=== PATIENT | female | born 1960 | race Caucasian/White ===

== ENCOUNTER 2016-07-03 10:55 | Emergency (ER) | payer OTHER ==
[~2016-07-03] VITALS: Ht 152.4 cm; Wt 105.4 kg
[~2016-07-03 10:55] MED LIST: ACIPHEX20 MG PO; ARTHRITIS PAIN650 M3 PO; ATIVAN1 MG PO; BENZTROPINE MESY1 MG PO; CALCIUM600 MG PO; EFFEXOR75 MG; FOLIC ACID1 MG PO; GEODON40 MG PO; IRON27 MG PO; IRON325 M1 PO; LEVOTHROID,S0.112 MG PO; LORAZEPAM1 MG PO; OMEPRAZOLE40 MG PO; PRILOSEC40 MG PO; PRINIVIL10 MG PO; RANITIDINE HCL300 M1 PO; SEROQUEL100 MG PO; SIMVASTATIN40 M1 PO; TRILAFON8 MG PO; TYLENOL650 MG PR; VENTOLIN HFA18 GM IH; ZESTRIL,PRINIVI10 MG PO; ZETIA10 MG PO; ZOCOR20 MG PO; ZOCOR40 MG PO; ZYRTEC10 MG PO
[2016-07-03 11:42] LABS: MCH 29.2 PG (29.0-34.0); MCHC 36.1 G/DL (30.0-36.0); PLATELET COUNT 303 K/uL (156-360); RBC DIS.WIDTH-CV 12.7 % (11.8-14.6); RED BLOOD COUNT 4.69 M/uL (3.80-5.20); WHITE BLOOD COUNT 9.3 K/uL (4.1-10.2)
[2016-07-03 11:50] LABS: CHLORIDE 102 mEq/L (99-109); POTASSIUM 4.1 mEq/L (3.7-5.4); SODIUM 133 mEq/L (136-147)
[2016-07-03 11:52] LABS: GLUCOSE 158 mg/dL (70-99)
[2016-07-03 11:54] LABS: ANION GAP 5 MEQ/L (2-14)
[2016-07-03 11:55] LABS: SERUM ETHYL ALCOHOL < 10 mg/dL
[2016-07-03 11:56] LABS: GFR ESTIMATE (CALCULATED) > 59 mL/min/
[2016-07-03 11:57] LABS: UREA NITROGEN (BUN) 8 mg/dL (9-23)
[2016-07-03 14:15] LABS: AMPHETAMINE NEGATIVE (500 ng/mL); BARBITURATES NEGATIVE (200 ng/mL); BENZODIAZEPINES NEGATIVE (150 ng/mL); COCAINE NEGATIVE (150 ng/mL); INTERNAL CONTROLS VALID? YES; METHADONE NEGATIVE (200 ng/mL); METHAMPHETAMINE NEGATIVE (500 ng/mL); OPIATES (MORPHINE) NEGATIVE (100 ng/mL); OXYCODONE NEGATIVE (100 ng/mL); PHENCYCLIDINE NEGATIVE (25 ng/mL); PROPOXYPHENE NEGATIVE (300 ng/mL); THC CANNABINOIDS NEGATIVE (50 ng/mL); TRICYCLIC ANTIDEPRESSANTS NEGATIVE (300 ng/mL)
[2016-07-03 16:28] VITALS: BP 140/67
[2016-07-04] MEDS ORDERED: LEVO-T112 MCG PO (17:02)
[2016-07-04] MEDS ORDERED: BENZTROPINE ME0.5 MG PO (17:03)
[2016-07-04] MEDS ORDERED: NORVASC10 MG PO (17:04)
[2016-07-04] MEDS ORDERED: TRILAFON4 MG PO (17:05)
[2016-07-04] MEDS ORDERED: FOLIC ACID0.4 MG PO (17:06)
[2016-07-04] MEDS ORDERED: WELLBUTRIN XL300 MG PO (17:06)
[2016-07-04] MEDS ORDERED: SYMBICORT60 INHALAT IH (17:07)
[2016-07-04] MEDS ORDERED: METOPROLOL SUC100 MG PO (17:10)
[2016-07-04] MEDS ORDERED: FLONASE16 G1 BOTH NARES (17:11)
[2016-07-04] MEDS ORDERED: CLOTRIM ANTIFUN15 GM TP (17:12)
[2016-07-04] MEDS ORDERED: VENTOLIN HFA18 GM IH (17:12)
== END 2016-07-03 16:28 | disposition home or self-care (01) ==
LOC: EME 10:55
DX: F20.9 Schizophrenia, unspecified (principal); J45.909 Unspecified asthma, uncomplicated; E11.9 Type 2 diabetes mellitus without complications; I10 Essential (primary) hypertension; K21.9 Gastro-esophageal reflux disease without esophagitis
CPT/HCPCS: 80048; 85027; 90839; 99281; 99284; G0480

== ENCOUNTER 2016-07-04 15:01 | Emergency (ER) | payer OTHER ==
[~2016-07-04] VITALS: Ht 152.4 cm; Wt 106.7 kg
[2016-07-04] MEDS ORDERED: LEVO-T112 MCG PO (17:02)
[2016-07-04] MEDS ORDERED: BENZTROPINE ME0.5 MG PO (17:03)
[2016-07-04] MEDS ORDERED: NORVASC10 MG PO (17:04)
[2016-07-04] MEDS ORDERED: TRILAFON4 MG PO (17:05)
[2016-07-04] MEDS ORDERED: FOLIC ACID0.4 MG PO (17:06)
[2016-07-04] MEDS ORDERED: WELLBUTRIN XL300 MG PO (17:06)
[2016-07-04] MEDS ORDERED: SYMBICORT60 INHALAT IH (17:07)
[2016-07-04] MEDS ORDERED: METOPROLOL SUC100 MG PO (17:10)
[2016-07-04] MEDS ORDERED: FLONASE16 G1 BOTH NARES (17:11)
[2016-07-04] MEDS ORDERED: CLOTRIM ANTIFUN15 GM TP (17:12)
[2016-07-04] MEDS ORDERED: VENTOLIN HFA18 GM IH (17:12)
[2016-07-04 18:37] VITALS: BP 120/76
== END 2016-07-04 18:38 ==
LOC: EME 15:01
DX: F25.1 Schizoaffective disorder, depressive type (principal); R44.0 Auditory hallucinations; I10 Essential (primary) hypertension; J45.909 Unspecified asthma, uncomplicated
CPT/HCPCS: 90837; 99281; 99285

== ENCOUNTER 2016-09-05 12:55 | Emergency (ER) | payer OTHER ==
[~2016-09-05] VITALS: Ht 157.5 cm; Wt 105.8 kg
[~2016-09-05 12:55] MED LIST changes: +BENZTROPINE ME0.5 MG PO; +CLOTRIM ANTIFUN15 GM TP; +FLONASE16 G1 BOTH NARES; +FOLIC ACID0.4 MG PO; +LEVO-T112 MCG PO; +METOPROLOL SUC100 MG PO; +NORVASC10 MG PO; +SYMBICORT60 INHALAT IH; +TRILAFON4 MG PO; +WELLBUTRIN XL300 MG PO
[2016-09-05 13:00] VITALS: BP 133/83
[2016-09-05] MEDS ORDERED: MOTRIN600 MG PO (15:13)
[2016-09-05] MEDS ORDERED: ULTRACET1 TABLET PO (15:13)
== END 2016-09-05 16:00 | disposition home or self-care (01) ==
LOC: EME 12:55 → RME 12:55
DX: M17.9 Osteoarthritis of knee, unspecified (principal); J45.909 Unspecified asthma, uncomplicated; F31.9 Bipolar disorder, unspecified; E11.9 Type 2 diabetes mellitus without complications; I10 Essential (primary) hypertension; K21.9 Gastro-esophageal reflux disease without esophagitis
CPT/HCPCS: 73564; 93971; 99281; 99285

== ENCOUNTER 2017-02-11 14:26 | Inpatient (IN) | payer OTHER ==
[~2017-02-11] VITALS: Ht 157.5 cm; Wt 94.5 kg
[~2017-02-11 14:26] MED LIST changes: +MOTRIN600 MG PO; +ULTRACET1 TABLET PO
[2017-02-11] MEDS ORDERED: PERPHENAZINE16 MG PO (17:14)
[2017-02-11 17:15] LABS: ADD MIUA? NO; BILIRUBIN NEGATIVE; BLOOD NEGATIVE; COLOR COLORLESS ((YELLOW)); GLUCOSE (STRIP) NEGATIVE; KETONES NEGATIVE; LEUKOCYTES NEGATIVE; NITRITE NEGATIVE; PROTEIN (STRIP) NEGATIVE; SPECIFIC GRAVITY 1.002 (1.000-1.030); UCUL ADDED? NO; UROBILINOGEN 0.2 MG/DL (0.2-1.0)
[2017-02-11 17:32] LABS: ADD MEDTOX COMMENT Y; AMPHETAMINE NEGATIVE (500 ng/mL); BARBITURATES NEGATIVE (200 ng/mL); BENZODIAZEPINES PRESUMPTIVE POSITIVE (150 ng/mL); COCAINE NEGATIVE (150 ng/mL); INTERNAL CONTROLS VALID? YES; METHADONE NEGATIVE (200 ng/mL); METHAMPHETAMINE NEGATIVE (500 ng/mL); OPIATES (MORPHINE) NEGATIVE (100 ng/mL); OXYCODONE NEGATIVE (100 ng/mL); PHENCYCLIDINE NEGATIVE (25 ng/mL); PROPOXYPHENE NEGATIVE (300 ng/mL); THC CANNABINOIDS NEGATIVE (50 ng/mL); TRICYCLIC ANTIDEPRESSANTS NEGATIVE (300 ng/mL)
[2017-02-11 18:09] LABS: BENZODIAZEPINES QUANT VALUE 0 NG/ML; BENZODIAZEPINES, URINE SCREEN Negative (200 ng/mL)
[2017-02-11 21:59] VITALS: BP 136/64
[2017-02-11 22:01] VITALS: BP 136/64
[2017-02-12 07:44] VITALS: BP 143/81
[2017-02-12 15:35] VITALS: BP 107/55
[2017-02-13 07:50] VITALS: BP 120/65
[2017-02-13 15:25] VITALS: BP 102/60
[2017-02-14 08:34] VITALS: BP 151/72
[2017-02-14 16:07] VITALS: BP 103/63
[2017-02-15 07:27] VITALS: BP 125/63
[2017-02-15 15:27] VITALS: BP 108/53
[2017-02-16 07:50] VITALS: BP 132/75
== END 2017-02-16 12:41 | disposition home or self-care (01) | DRG 885 ==
LOC: EME 14:26 → EDOF 16:47 → 1WEST 16:47 → ENRESERV 21:51 → 1WEST 21:54
PROVIDERS: Emergency Medicine
DX: F20.0 Paranoid schizophrenia (principal); F41.9 Anxiety disorder, unspecified; F32.9 Major depressive disorder, single episode, unspecified; G47.00 Insomnia, unspecified; G43.909 Migraine, unspecified, not intractable, without status migrainosus; E11.9 Type 2 diabetes mellitus without complications; I10 Essential (primary) hypertension; M10.9 Gout, unspecified; K21.9 Gastro-esophageal reflux disease without esophagitis; J45.909 Unspecified asthma, uncomplicated; Z81.8 Family history of other mental and behavioral disorders
CPT/HCPCS: 81003; 84999; 90839; 94640; 94640 76; 97150 GO; 97165 GO; 99202; 99281; 99284; Q0175